=== PATIENT | female | born 1980 | race Two or more races ===

== ENCOUNTER 2018-02-11 17:22 | Inpatient (IN) | payer MEDICARE, OTHER ==
[~2018-02-11] VITALS: Ht 170.2 cm; Wt 74.8 kg
[2018-02-11 17:22] VITALS: BP 111/70
[2018-02-11] MEDS ORDERED: ZOLPIDEM TARTRA10 MG ORAL (17:30)
[2018-02-11] MEDS ORDERED: QUETIAPINE FUM400 MG ORAL (17:30)
[2018-02-11] MEDS ORDERED: ZYPREXA10 MG ORAL (17:30)
[2018-02-11] MEDS ORDERED: DIPHENHYDRAMINE25 M1 ORAL (17:30)
[2018-02-11] MEDS ORDERED: BREO ELLIPTA 21 EACH IH (17:30)
[2018-02-11] MEDS ORDERED: VENTOLIN HFA18 GM INH (17:30)
[2018-02-11] MEDS ORDERED: DEPAKOTE ER500 MG ORAL (17:30)
[2018-02-11] MEDS ORDERED: SEROQUEL200 MG ORAL (17:30)
[2018-02-11 18:00] LABS: BASOPHILS % (AUTO) 0.3 % (0.0-2.0); EOSINOPHILS % (AUTO) 0.5 % (0.0-3.0); HEMATOCRIT 34.4 % (37.0-47.0); HEMOGLOBIN 11.8 G/DL (12.0-16.0); MEAN CORPUSCULAR VOLUME 87 FL (80-99); MONOCYTES % (AUTO) 10.2 % (1.0-10.0); PLATELET COUNT 195 K/UL (150-450); RED BLOOD COUNT 3.97 M/UL (4.20-5.40); RED CELL DISTRIBUTION WIDTH 11.5 % (11.6-14.8); WHITE BLOOD COUNT 7.2 K/UL (4.8-10.8)
[2018-02-11 18:01] LABS: ANION GAP 14 mmol/L (5-15); BLOOD UREA NITROGEN 12 mg/dL (7-18); CARBON DIOXIDE 25 MMOL/L (21-32); CHLORIDE 101 MMOL/L (98-107); POTASSIUM 3.2 MMOL/L (3.5-5.1); SODIUM 140 MMOL/L (136-145)
[2018-02-11 18:06] LABS: ALANINE AMINOTRANSFERASE 24 U/L (12-78); ALBUMIN 3.4 G/DL (3.4-5.0); ALBUMIN/GLOBULIN RATIO 0.7 (1.0-2.7); ALKALINE PHOSPHATASE 68 U/L (46-116); ASPARTATE AMINO TRANSFERASE 25 U/L (15-37); BILIRUBIN,TOTAL 0.4 MG/DL (0.2-1.0)
[2018-02-11 19:21] VITALS: BP 115/65
[2018-02-11] MEDS ORDERED: Depakote ER 500mg tab ORAL SCH (22:15)
[2018-02-11 22:38] VITALS: BP 115/93
--- NOTE | 2018-02-11 22:48 | Diagnostic Imaging Report ---
EXAM: XR Chest, 1 View CLINICAL HISTORY: SOB TECHNIQUE: Frontal view of the chest. COMPARISON: No relevant prior studies available. FINDINGS: Lungs: Unremarkable. No consolidation. Pleural space: Unremarkable. No pneumothorax. Heart: Unremarkable. No cardiomegaly. Mediastinum: Unremarkable. Bones/joints: Unremarkable. IMPRESSION: No acute findings.
--- NOTE | 2018-02-11 23:18 | Emergency Room Report ---
History of Present Illness General Chief Complaint: Seizure Source: Medical Record Present Illness HPI Patient is a 37-year-old female sent in from [id number] for witnessed seizure. Patient reportedly had prior history of seizure disorder. She was taking Depakote. The patient was noted to be confused after seizure. The patient was brought in by EMS. The is unknown if patient is compliant with her medications. History is limited by patient's altered mental status. Allergies: Coded Allergies: TOMATO (Verified Allergy, Unknown, 02/11/18) Patient History Past Medical History: see triage record Now: No Reviewed Nursing Documentation: PMH: Agreed; PSxH: Agreed Nursing Documentation-PMH Hx COPD: Yes History Of Psychiatric Problem: Yes - SCHIZOPRENIA Hx Seizures: Yes Review of Systems All Other Systems: limited - by mental status Physical Exam Vital Signs Date Time Temp Pulse Resp B/P (MAP) Pulse Ox O2 Delivery O2 Flow Rate FiO2 02/11/18 17:08 97.8 110 16 125/80 98 Room Air 97.9 Sp02 EP Interpretation: reviewed, normal General Appearance: normal inspection, well appearing, no apparent distress, alert, Chronically Ill Head: atraumatic ENT: normal ENT inspection, hearing grossly normal, normal voice Neck: normal inspection, full range of motion, supple, no bony tend Respiratory: normal inspection, lungs clear, normal breath sounds, no respiratory distress, no retraction, no wheezing Cardiovascular #1: regular rate, rhythm, no edema Gastrointestinal: normal inspection, normal bowel sounds, non tender, soft, no guarding, no hernia Genitourinary: no CVA tenderness Musculoskeletal: normal inspection, back normal, normal range of motion Neurologic: responsive, sensory deficit Psychiatric: normal inspection, judgement/insight normal, mood/affect normal Skin: normal inspection, normal color, no rash Medical Decision Making Diagnostic Impression: Primary Impression: Seizure Additional Impressions: Seizure secondary to subtherapeutic anticonvulsant medication Dehydration ER Course Patient presented for seizure. The differential diagnosis included was not limited to substance abuse, cardiac arrhythmia, subtherapeutic anticonvulsant level, pseudoseizure among others.Because of complexity of patient's case laboratory testing and imaging studies were ordered. The patient was noted to have prolonged period of confusion. The patient. Be somewhat improved over time. Patient was noted to have prior history of seizure disorder. EKG interpreted by me showed sinus tachycardia with nonspecific ST changes. Rate of 104. Patient was discussed with Dr.De Mckeon for Dr Becker for inpatient managent Labs Test 02/11/18 17:30 02/11/18 19:00 White Blood Count 7.2 K/UL (4.8-10.8) Red Blood Count 3.97 M/UL (4.20-5.40) Hemoglobin 11.8 G/DL (12.0-16.0) Hematocrit 34.4 % (37.0-47.0) Mean Corpuscular Volume 87 FL (80-99) Mean Corpuscular Hemoglobin 29.7 PG (27.0-31.0) Mean Corpuscular Hemoglobin Concent 34.3 G/DL (32.0-36.0) Red Cell Distribution Width 11.5 % (11.6-14.8) Platelet Count 195 K/UL (150-450) Mean Platelet Volume 7.0 FL (6.5-10.1) Neutrophils (%) (Auto) 59.0 % (45.0-75.0) Lymphocytes (%) (Auto) 30.0 % (20.0-45.0) Monocytes (%) (Auto) 10.2 % (1.0-10.0) Eosinophils (%) (Auto) 0.5 % (0.0-3.0) Basophils (%) (Auto) 0.3 % (0.0-2.0) Sodium Level 140 MMOL/L (136-145) Potassium Level 3.2 MMOL/L (3.5-5.1) Chloride Level 101 MMOL/L (98-107) Carbon Dioxide Level 25 MMOL/L (21-32) Anion Gap 14 mmol/L (5-15) Blood Urea Nitrogen 12 mg/dL (7-18) Creatinine 1.0 MG/DL (0.55-1.30) Estimat Glomerular Filtration Rate > 60 mL/min (>60) Glucose Level 120 MG/DL (74-106) Calcium Level 9.0 MG/DL (8.5-10.1) Total Bilirubin 0.4 MG/DL (0.2-1.0) Aspartate Amino Transf (AST/SGOT) 25 U/L (15-37) Alanine Aminotransferase (ALT/SGPT) 24 U/L (12-78) Alkaline Phosphatase 68 U/L (46-116) Total Protein 8.0 G/DL (6.4-8.2) Albumin 3.4 G/DL (3.4-5.0) Globulin 4.6 g/dL Albumin/Globulin Ratio 0.7 (1.0-2.7) Valproic Acid (Depakene) Level 48 MCG/ML (50-100) Urine Opiates Screen Negative (NEGATIVE) Urine Barbiturates Screen Negative (NEGATIVE) Phencyclidine (PCP) Screen Negative (NEGATIVE) Urine Amphetamines Screen Positive (NEGATIVE) Urine Benzodiazepines Screen Negative (NEGATIVE) Urine Cocaine Screen Negative (NEGATIVE) Urine Marijuana (THC) Screen Negative (NEGATIVE) EKG Diagnostic Results Rate: tachycardiac Rhythm: NSR ST Segments: other - st depression Last Vital Signs Date Time Temp Pulse Resp B/P (MAP) Pulse Ox O2 Delivery O2 Flow Rate FiO2 02/11/18 22:38 97.9 110 23 115/93 97 Room Air 97.9 Status: improved Disposition: ADMITTED INPATIENT Condition: Serious Referrals: NON PHYSICIAN (PCP) Bartolo Cohen MD Feb 11, 2018 23:18
[2018-02-11] MEDS: QUEtiapine 200mg tab ORAL SCH (23:33)
[2018-02-11] MEDS: Enoxaparin 40mg Inj SUBQ SCH (23:34)
[2018-02-12] VITALS: BP 112/74
[2018-02-12 00:46] VITALS: BP 115/93
[2018-02-12 04:00] VITALS: BP 118/67
[2018-02-12] MEDS: QUEtiapine 200mg tab ORAL SCH ×2 (08:59→21:55)
[2018-02-12] MEDS: Depakote 125mg Sprinkles ORAL SCH ×2 (09:25→18:37)
[2018-02-12] MEDS: LORazepam 1mg tab ORAL PRN (10:06)
[2018-02-12] MEDS ORDERED: LORazepam 1mg tab ORAL PRN (11:30)
[2018-02-12] MEDS ORDERED: Haloperidol 5mg/ml Inj IM SCH ×3 (11:30→21:00)
[2018-02-12] MEDS ORDERED: LORazepam Inj 2mg/ml 1ml IM SCH ×3 (11:30→21:00)
[2018-02-12] MEDS ORDERED: DiphenhydrAMINE 50mg/ml Inj IM SCH ×3 (11:30→21:00)
--- NOTE | 2018-02-12 14:26 | Infectious Diseases Prog Note ---
Assessment/Plan Problems: (1) Fever Assessment & Plan: rule out sepsis , will order UA and blood culture , will start vancomycin and ceftriaxon empirically (2) Seizure secondary to subtherapeutic anticonvulsant medication Assessment & Plan: continue seizure meds, and antibiotics, monitor level, consult neurology (3) Dehydration Assessment & Plan: continue IVF for hydration (4) Drug abuse Assessment & Plan: recommend counseling Subjective Allergies: Coded Allergies: TOMATO (Verified Allergy, Unknown, 02/11/18) Objective Vital Signs Last 24 Hour Vital Signs Date Time Temp Pulse Resp B/P (MAP) Pulse Ox O2 Delivery O2 Flow Rate FiO2 02/12/18 09:00 Room Air 02/12/18 04:00 99.8 111 24 118/67 (84) 97 99.8 02/12/18 00:48 Room Air 02/12/18 00:46 97.9 110 23 115/93 (100) 97 97.9 02/12/18 00:00 98.2 119 24 112/74 (87) 100 98.2 02/11/18 23:05 97.9 110 23 115/93 97 Room Air 97.9 02/11/18 22:38 97.9 110 23 115/93 97 Room Air 97.9 02/11/18 19:21 97.9 99 23 115/65 97 Room Air 97.9 02/11/18 17:22 97.9 104 23 111/70 96 Room Air 97.9 02/11/18 17:22 110 16 Room Air 02/11/18 17:08 97.8 110 16 125/80 98 Room Air 97.9 Height (Feet): 5 Height (Inches): 7.00 Weight (Pounds): 165 Laboratory Tests Test 02/11/18 17:30 02/11/18 19:00 White Blood Count 7.2 K/UL (4.8-10.8) Red Blood Count 3.97 M/UL (4.20-5.40) L Hemoglobin 11.8 G/DL (12.0-16.0) L Hematocrit 34.4 % (37.0-47.0) L Mean Corpuscular Volume 87 FL (80-99) Mean Corpuscular Hemoglobin 29.7 PG (27.0-31.0) Mean Corpuscular Hemoglobin Concent 34.3 G/DL (32.0-36.0) Red Cell Distribution Width 11.5 % (11.6-14.8) L Platelet Count 195 K/UL (150-450) Mean Platelet Volume 7.0 FL (6.5-10.1) Neutrophils (%) (Auto) 59.0 % (45.0-75.0) Lymphocytes (%) (Auto) 30.0 % (20.0-45.0) Monocytes (%) (Auto) 10.2 % (1.0-10.0) H Eosinophils (%) (Auto) 0.5 % (0.0-3.0) Basophils (%) (Auto) 0.3 % (0.0-2.0) Sodium Level 140 MMOL/L (136-145) Potassium Level 3.2 MMOL/L (3.5-5.1) L Chloride Level 101 MMOL/L (98-107) Carbon Dioxide Level 25 MMOL/L (21-32) Anion Gap 14 mmol/L (5-15) Blood Urea Nitrogen 12 mg/dL (7-18) Creatinine 1.0 MG/DL (0.55-1.30) Estimat Glomerular Filtration Rate > 60 mL/min (>60) Glucose Level 120 MG/DL (74-106) H Calcium Level 9.0 MG/DL (8.5-10.1) Total Bilirubin 0.4 MG/DL (0.2-1.0) Aspartate Amino Transf (AST/SGOT) 25 U/L (15-37) Alanine Aminotransferase (ALT/SGPT) 24 U/L (12-78) Alkaline Phosphatase 68 U/L (46-116) Total Protein 8.0 G/DL (6.4-8.2) Albumin 3.4 G/DL (3.4-5.0) Globulin 4.6 g/dL Albumin/Globulin Ratio 0.7 (1.0-2.7) L Valproic Acid (Depakene) Level 48 MCG/ML (50-100) L Urine Opiates Screen Negative (NEGATIVE) Urine Barbiturates Screen Negative (NEGATIVE) Phencyclidine (PCP) Screen Negative (NEGATIVE) Urine Amphetamines Screen Positive (NEGATIVE) H Urine Benzodiazepines Screen Negative (NEGATIVE) Urine Cocaine Screen Negative (NEGATIVE) Urine Marijuana (THC) Screen Negative (NEGATIVE) Current Medications Medications (Trade) Dose Ordered Sig/Vida Route PRN Reason Start Time Stop Time Status Last Admin Dose Admin Acetaminophen (Tylenol) 650 mg Q4H PRN ORAL Mild Pain (Pain Scale 1-3) 02/11/18 21:45 03/13/18 21:44 Dextrose (Dextrose 50%) 25 ml STAT PRN IV Hypoglycemia 02/11/18 21:45 03/13/18 21:44 Dextrose (Dextrose 50%) 50 ml STAT PRN IV Hypoglycemia 02/11/18 21:45 03/13/18 21:44 Diphenhydramine HCl (Benadryl) 25 mg Q6H PRN ORAL Itching/Pruritis 02/11/18 21:45 03/13/18 21:44 Divalproex Sodium (Depakote Sprinkles) 500 mg BID ORAL 02/12/18 09:15 03/14/18 09:14 02/12/18 09:25 Enoxaparin Sodium (Lovenox) 40 mg BEDTIME SUBQ 02/11/18 22:45 03/13/18 22:44 02/11/18 23:34 Lorazepam (Ativan) 1 mg Q6H PRN ORAL For Anxiety 02/12/18 09:30 02/19/18 09:29 02/12/18 10:06 Lorazepam (Ativan) 2 mg Q6H PRN ORAL Agitation 02/12/18 11:30 02/19/18 11:29 Olanzapine (ZyPREXA) 10 mg DAILY ORAL 02/12/18 09:00 03/14/18 08:59 02/12/18 08:59 Ondansetron HCl (Zofran) 4 mg Q6H PRN IVP Nausea & Vomiting 02/11/18 21:45 03/13/18 21:44 Quetiapine Fumarate (SEROquel) 200 mg Q12HR ORAL 02/11/18 22:15 03/13/18 22:14 02/12/18 08:59 Sodium Chloride 1,000 ml @ 100 mls/hr Q10H IVLG 02/11/18 22:33 03/13/18 22:32 02/11/18 23:35 Mary Suazo M.D. Feb 12, 2018 14:26
[2018-02-12] MEDS ORDERED: cefTRIAXone 2 GM in D5W 110 ML IVPB SCH (15:30)
[2018-02-12] MEDS ORDERED: Vancomycin 1.5 GM/D5W 250ML IVPB ONE (16:00)
--- NOTE | 2018-02-12 17:30 | History and Physical Report ---
DATE OF ADMISSION: 02/11/2018 DATE OF ADMISSION: February 11, 2018. REASON FOR ADMISSION: 1. Seizure. 2. Schizophrenia. HISTORY OF PRESENT ILLNESS: The patient is a 37-year-old female sent from [facility] after having a witnessed seizure. She does have a previous seizure disorder and was taking Depakote. The patient also has known schizophrenia. She was postictal but improved overnight and now is quite combative in nature. Her urine drug screen was positive for amphetamines. No chest pain of shortness of breath. No nausea, vomiting, or diarrhea. PAST MEDICAL HISTORY: 1. Schizophrenia. 2. Seizure disorder. 3. Anxiety. FAMILY HISTORY: Could not obtain. PAST SURGICAL HISTORY: Could not obtain. SOCIAL HISTORY: The patient was positive for amphetamines. REVIEW OF SYSTEMS: Cannot obtain as the patient is awake, combative, and disorganized. LABORATORY DATA: Dated February 11, 2018, positive for amphetamines. Potassium 3.2, sodium 140, creatinine 1. Hemoglobin 11.8, white cell count 7.2, and platelet count 195,000. PHYSICAL EXAMINATION: VITAL SIGNS: Blood pressure 118/67, pulse 111, temperature 99.8. GENERAL: The patient is awake, combative, and disorganized. HEENT: Extraocular muscles intact. No lymphadenopathy noted. CHEST: CTAB CARDIOVASCULAR: S1, S2. Tachycardic. PULMONARY: Clear to auscultation bilaterally. No rales, rhonchi, or wheezes. ABDOMEN: Nondistended and nontender. EXTREMITIES: No edema. ASSESSMENT AND PLAN: 1. Status post seizure, witnessed. Postictal in nature. Much more awake and coherent today. On Depakote. We will try to attempt to consult Neurology if available. The patient was amphetamine positive. 2. Schizophrenia. The patient is combative and disorganized. Continue Zyprexa and Ativan. Psychiatry has been consulted for assistance. 3. Hypokalemia. It has been replaced. Morning laboratories pending. 4. DVT prophylaxis, with Lovenox. Melchor Garcia MD DR: Allen JOB#: [id number] CC: FELIPE
--- NOTE | 2018-02-12 19:15 | Consultation ---
DATE OF CONSULTATION: 02/12/2018 INFECTIOUS DISEASE CONSULTATION CONSULTING PHYSICIAN: Mary Suazo M.D. REQUESTING PHYSICIAN: Ted Peters M.D. REASON FOR CONSULTATION: Fever with new episode seizure, rule out infectious etiology. HISTORY OF PRESENT ILLNESS: The patient is a 37-year-old female with past medical history of schizophrenia and seizure who was living at a board and care, was brought into [facility] emergency room for witnessed seizure. The patient was taking Depakote as per the staff, but she was noticed to be confused after she had a seizure, so she was sent to the emergency room at [facility] via paramedics for evaluation. It is unknown whether she was really taking her medications or not, but the patient seems to be confused, a poor historian, cannot provide any history at that time. The patient was found to be febrile and tachycardic in the emergency room, with dehydration. The patient's initial chest x-ray did not show any acute infiltration, but since she had a seizure with concern of infectious etiology, infectious disease consultation was requested for further evaluation and management. As of note, the patient is altered, psychotic, could not provide any history. History was mainly obtained from the medical record. REVIEW OF SYSTEMS: Unable to obtain. The patient is altered and confused. PAST MEDICAL HISTORY: Significant for COPD, schizophrenia, and seizure disorder. PAST SURGICAL HISTORY: Not on record. FAMILY HISTORY: Unable to obtain. SOCIAL HISTORY: She lives in [facility] illness. The patient has been using drugs recently and tested positive for amphetamine. ALLERGIES: He has no known drug allergy. MEDICATIONS: She is on lorazepam, Depakote, Zyprexa, Lovenox, Seroquel, Tylenol, and Zofran. LABORATORY DATA: Labs showed white count of 7.2, hemoglobin of 11.8, platelet count of 195. BUN of 12, creatinine of 1. AST of 25, ALT of 24. Toxicology screening was positive for amphetamines and her valproic acid level was low. IMAGING: Chest x-ray showed no acute findings. PHYSICAL EXAMINATION: VITAL SIGNS: Temperature 99.8, pulse 111, respirations 24, blood pressure 118/67, saturation 97% on room air. GENERAL: Young female, lying in bed, psychotic, confused, altered, not responsive to verbal command, mildly agitated. HEENT: Normocephalic and atraumatic. Pupils are reactive to light equally. Moist oral mucosa. No exudate. NECK: Supple. No lymphadenopathy. CARDIOVASCULAR: She is tachycardic. S1, S2 normal. No murmur. LUNGS: She had diminished breathing sounds at the bases with crackles. No wheezing or rhonchi. ABDOMEN: Soft, obese, nontender, and nondistended. Normal bowel sounds. No hepatosplenomegaly. No ascites. EXTREMITIES: No edema or cyanosis. SKIN: No rash. No hives. ASSESSMENT AND RECOMMENDATION: 1. Fever, rule out sepsis. We will order urinalysis and blood culture. We will start the patient on vancomycin and ceftriaxone empiric coverage. 2. Seizure due to subtherapeutic anticonvulsant medication. Continue seizure medicine with loading and antibiotic empiric coverage for possible infection, monitor level. Consult Neurology if possible. 3. Dehydration. Continue IV fluid for hydration. 4. Drug abuse. Recommend counseling and rehabilitation. Thank you for the consult. ID will continue to follow. Mary Suazo M.D. DR: NORA JOB#: [id number] CC:
[2018-02-12] MEDS: Enoxaparin 40mg Inj SUBQ SCH (21:56)
--- NOTE | 2018-02-12 23:14 | Consultation ---
History of Present Illness General Chief Complaint: Seizure Present Illness Allergies: Coded Allergies: TOMATO (Verified Allergy, Unknown, 02/11/18) Medication History Scheduled Albuterol Sulfate (Ventolin Hfa), 1 PUFF INH EVERY 6 HOURS, (Reported) Divalproex Sodium* (Depakote Er*), 500 MG ORAL EVERY 12 HOURS, (Reported) Olanzapine* (Zyprexa*), 10 MG ORAL DAILY, (Reported) Quetiapine Fumarate* (Seroquel*), 200 MG ORAL DAILY, (Reported) Quetiapine Fumarate* (Quetiapine Fumarate*), 400 MG ORAL DAILY, (Reported) Scheduled PRN Diphenhydramine Hcl* (Diphenhydramine Hcl*), 50 MG ORAL Q6H PRN for Itching, ( Reported) Zolpidem Tartrate* (Zolpidem Tartrate*), 10 MG ORAL BEDTIME PRN for Insomnia, ( Reported) Miscellaneous Medications Fluticasone/Vilanterol (Breo Ellipta 200-25 Mcg INH), 1 EACH IH, (Reported) Patient History Healthcare decision maker Marci Merritt Resuscitation status Full Code Advanced Directive on File Physical Exam Last 24 Hour Vital Signs Date Time Temp Pulse Resp B/P (MAP) Pulse Ox O2 Delivery O2 Flow Rate FiO2 02/12/18 21:00 Room Air 02/12/18 09:00 Room Air 02/12/18 04:00 99.8 111 24 118/67 (84) 97 99.8 02/12/18 00:48 Room Air 02/12/18 00:46 97.9 110 23 115/93 (100) 97 97.9 02/12/18 00:00 98.2 119 24 112/74 (87) 100 98.2 Intake and Output 02/11/18 02/12/18 19:00 07:00 Intake Total 0 ml 1820 ml Balance 0 ml 1820 ml Intake Oral 0 ml 120 ml IV Total 1700 ml Height (Feet): 5 Height (Inches): 7.00 Weight (Pounds): 165 Medications Current Medications Medications (Trade) Dose Ordered Sig/Vida Route PRN Reason Start Time Stop Time Status Last Admin Dose Admin Acetaminophen (Tylenol) 650 mg Q4H PRN ORAL Mild Pain (Pain Scale 1-3) 02/11/18 21:45 03/13/18 21:44 Cephalexin (Keflex) 500 mg Q6HR ORAL 02/13/18 00:00 02/20/18 00:00 Dextrose (Dextrose 50%) 25 ml STAT PRN IV Hypoglycemia 02/11/18 21:45 03/13/18 21:44 Dextrose (Dextrose 50%) 50 ml STAT PRN IV Hypoglycemia 02/11/18 21:45 03/13/18 21:44 Diphenhydramine HCl (Benadryl) 25 mg Q6H PRN ORAL Itching/Pruritis 02/11/18 21:45 03/13/18 21:44 Divalproex Sodium (Depakote Sprinkles) 500 mg BID ORAL 02/12/18 09:15 03/14/18 09:14 02/12/18 18:37 Doxycycline Monohydrate (Vibramycin) 100 mg EVERY 12 HOURS ORAL 02/12/18 22:00 02/19/18 21:59 02/12/18 22:06 Enoxaparin Sodium (Lovenox) 40 mg BEDTIME SUBQ 02/11/18 22:45 03/13/18 22:44 02/12/18 21:56 Lorazepam (Ativan) 1 mg Q6H PRN ORAL For Anxiety 02/12/18 09:30 02/19/18 09:29 02/12/18 10:06 Lorazepam (Ativan) 2 mg Q6H PRN ORAL Agitation 02/12/18 11:30 02/19/18 11:29 Olanzapine (ZyPREXA) 10 mg DAILY ORAL 02/12/18 09:00 03/14/18 08:59 02/12/18 08:59 Ondansetron HCl (Zofran) 4 mg Q6H PRN IVP Nausea & Vomiting 02/11/18 21:45 03/13/18 21:44 Quetiapine Fumarate (SEROquel) 200 mg Q12HR ORAL 02/11/18 22:15 03/13/18 22:14 02/12/18 21:55 Sodium Chloride 1,000 ml @ 100 mls/hr Q10H IVLG 02/11/18 22:33 03/13/18 22:32 02/11/18 23:35 Vancomycin HCl (Vanco rx to dose) 1 ea DAILY PRN MISC Per rx protocol 02/12/18 14:30 03/14/18 14:29 Eber Dwyer MD Feb 12, 2018 23:14
[2018-02-12] MEDS: Cephalexin 500mg cap ORAL SCH (23:49)
[2018-02-13] MEDS ORDERED: Vancomycin 1250mg/D5W 250ml IVPB SCH (04:00)
[2018-02-13] MEDS: Cephalexin 500mg cap ORAL SCH ×3 (06:14→17:25)
[2018-02-13 06:44] LABS: APPEARANCE,URINE SLIGHTLY CLOUDY; BILIRUBIN, URINE 1+ (NEGATIVE); GLUCOSE, URINE (UA) NEGATIVE (NEGATIVE); KETONES,URINE 1+ (NEGATIVE); LEUKOCYTE ESTERASE ,URINE 2+ (NEGATIVE); NITRITE,URINE NEGATIVE (NEGATIVE); PH,URINE 6 (4.5-8.0); PROTEIN,URINE 2+ (NEGATIVE); UROBILINOGEN,URINE 4 MG/DL (0.0-1.0)
[2018-02-13 07:02] LABS: COLOR,URINE YELLOW
[2018-02-13 08:24] VITALS: BP 90/50
[2018-02-13] MEDS: Depakote 125mg Sprinkles ORAL SCH ×2 (09:21→17:26)
[2018-02-13] MEDS: QUEtiapine 200mg tab ORAL SCH ×2 (09:21→21:14)
--- NOTE | 2018-02-13 09:25 | Nephrology Progress Note ---
Assessment/Plan Assessment/Plan 1. Seizure- + amphetamine - resolved. Post ictal phase resolved - back on Depakote - plan on DC tomorrow back to care facility 2. Schizophrenia- per PSY mgmt 3. DVT prophylaxisis with lovenox Subjective Date patient seen: Feb 13, 2018 Time patient seen: 09:22 ROS Limited/Unobtainable: No Allergies: Coded Allergies: TOMATO (Verified Allergy, Unknown, 02/11/18) All Systems: reviewed and negative except above Subjective Patient resting. Much more calm Objective Last 24 Hour Vital Signs Date Time Temp Pulse Resp B/P (MAP) Pulse Ox O2 Delivery O2 Flow Rate FiO2 02/13/18 08:24 98.1 87 21 90/50 (63) 97 98.1 02/12/18 21:00 Room Air Intake and Output 02/12/18 02/13/18 19:00 07:00 Intake Total 300 ml Balance 300 ml IV Total 300 ml # Voids 1 1 Laboratory Tests 02/13/18 06:15: Urine Color Yellow, Urine Appearance Slightly cloudy, Urine pH 6, Urine Specific [place] 1.025, Urine Protein 2+H, Urine Glucose (UA) Negative, Urine Ketones 1+H, Urine Occult Blood Negative, Urine Nitrite Negative, Urine Bilirubin 1+H, Urine Ictotest Negative, Urine Urobilinogen 4H, Urine Leukocyte Esterase 2+H, Urine RBC 2-4H, Urine WBC 2-4, Urine Squamous Epithelial Cells ModerateH, Urine Bacteria Few, Urine Yeast FewH Height (Feet): 5 Height (Inches): 7.00 Weight (Pounds): 165 General Appearance: no apparent distress, alert EENT: normal ENT inspection Neck: normal alignment, supple Cardiovascular: normal rate, regular rhythm Respiratory/Chest: lungs clear, normal breath sounds Abdomen: non tender, soft Edema: no edema noted Arm (L), no edema noted Arm (R), no edema noted Leg (L), no edema noted Leg (R), no edema noted Pedal (L), no edema noted Pedal (R), no edema noted Generalized Melchor Garcia M.D. Feb 13, 2018 09:24
[2018-02-13 11:57] VITALS: BP 130/60
[2018-02-13 13:52] LABS: BASOPHILS % (AUTO) 0.8 % (0.0-2.0); EOSINOPHILS % (AUTO) 2.6 % (0.0-3.0); HEMATOCRIT 35.7 % (37.0-47.0); HEMOGLOBIN 11.9 G/DL (12.0-16.0); MEAN CORPUSCULAR VOLUME 89 FL (80-99); MONOCYTES % (AUTO) 9.1 % (1.0-10.0); NEUTROPHILS % (AUTO) 57.5 % (45.0-75.0); PLATELET COUNT 185 K/UL (150-450); RED CELL DISTRIBUTION WIDTH 11.9 % (11.6-14.8); WHITE BLOOD COUNT 8.1 K/UL (4.8-10.8)
--- NOTE | 2018-02-13 14:07 | Infectious Diseases Prog Note ---
Assessment/Plan Problems: (1) UTI (urinary tract infection) Assessment & Plan: will continue keflex empirically for 5 more days (2) Fever Assessment & Plan: suspect due to UTI, rule out sepsis , blood culture was not collected, D/W charge nurse , on oral antibiotics , pulled all her IV lines (3) Seizure secondary to subtherapeutic anticonvulsant medication Assessment & Plan: continue seizure meds, and antibiotics, monitor level, consult neurology (4) Dehydration Assessment & Plan: continue IVF for hydration (5) Drug abuse Assessment & Plan: recommend counseling Subjective ROS Limited/Unobtainable: Yes Allergies: Coded Allergies: TOMATO (Verified Allergy, Unknown, 02/11/18) Subjective she is more quiet and resting in bed , not agitated or psychotic . unresponsive to verbal commands Objective Vital Signs Last 24 Hour Vital Signs Date Time Temp Pulse Resp B/P (MAP) Pulse Ox O2 Delivery O2 Flow Rate FiO2 02/13/18 11:57 98.2 101 19 130/60 (83) 97 98.2 02/13/18 09:00 Room Air 02/13/18 08:24 98.1 87 21 90/50 (63) 97 98.1 02/12/18 21:00 Room Air Height (Feet): 5 Height (Inches): 7.00 Weight (Pounds): 165 General Appearance: WD/WN, no acute distress HEENT: normocephalic, atraumatic, anicteric, mucous membranes moist, PERRL Respiratory/Chest: chest wall non-tender, lungs clear, normal breath sounds, no respiratory distress, no accessory muscle use Cardiovascular: normal peripheral pulses, normal rate, regular rhythm, no gallop/murmur, no JVD Abdomen: normal bowel sounds, soft, non tender, no organomegaly, non distended , no mass, no scars Extremities: no cyanosis, no clubbing Skin: no rash, no lesions, no ulcers Neurologic/Psychiatric: alert, oriented x 3, responsive Lymphatic: no neck adenopathy, no groin adenopathy Musculoskeletal: normal muscle bulk Microbiology Date/Time Source Procedure Growth Status 02/11/18 22:21 Rectum VRE Culture - Final NO VANCOMYCIN RESISTANT ENTEROCOCCUS ... Resulted 02/11/18 22:21 Rectum Pending Resulted Laboratory Tests Test 02/13/18 06:15 02/13/18 13:26 Urine Color Yellow Urine Appearance Slightly cloudy Urine pH 6 (4.5-8.0) Urine Specific [place] 1.025 (1.005-1.035) Urine Protein 2+ (NEGATIVE) H Urine Glucose (UA) Negative (NEGATIVE) Urine Ketones 1+ (NEGATIVE) H Urine Occult Blood Negative (NEGATIVE) Urine Nitrite Negative (NEGATIVE) Urine Bilirubin 1+ (NEGATIVE) H Urine Ictotest Negative Urine Urobilinogen 4 MG/DL (0.0-1.0) H Urine Leukocyte Esterase 2+ (NEGATIVE) H Urine RBC 2-4 /HPF (0 - 2) H Urine WBC 2-4 /HPF (0 - 2) Urine Squamous Epithelial Cells Moderate /LPF (NONE/OCC) H Urine Bacteria Few /HPF (NONE) Urine Yeast Few /HPF (NONE) H White Blood Count 8.1 K/UL (4.8-10.8) Red Blood Count 4.00 M/UL (4.20-5.40) L Hemoglobin 11.9 G/DL (12.0-16.0) L Hematocrit 35.7 % (37.0-47.0) L Mean Corpuscular Volume 89 FL (80-99) Mean Corpuscular Hemoglobin 29.7 PG (27.0-31.0) Mean Corpuscular Hemoglobin Concent 33.2 G/DL (32.0-36.0) Red Cell Distribution Width 11.9 % (11.6-14.8) Platelet Count 185 K/UL (150-450) Mean Platelet Volume 7.4 FL (6.5-10.1) Neutrophils (%) (Auto) 57.5 % (45.0-75.0) Lymphocytes (%) (Auto) 30.0 % (20.0-45.0) Monocytes (%) (Auto) 9.1 % (1.0-10.0) Eosinophils (%) (Auto) 2.6 % (0.0-3.0) Basophils (%) (Auto) 0.8 % (0.0-2.0) Sodium Level Pending Potassium Level Pending Chloride Level Pending Carbon Dioxide Level Pending Blood Urea Nitrogen Pending Creatinine Pending Estimat Glomerular Filtration Rate Pending Glucose Level Pending Calcium Level Pending Current Medications Medications (Trade) Dose Ordered Sig/Vida Route PRN Reason Start Time Stop Time Status Last Admin Dose Admin Acetaminophen (Tylenol) 650 mg Q4H PRN ORAL Mild Pain (Pain Scale 1-3) 02/11/18 21:45 03/13/18 21:44 Cephalexin (Keflex) 500 mg Q6HR ORAL 02/13/18 00:00 02/20/18 00:00 02/13/18 11:42 Dextrose (Dextrose 50%) 25 ml STAT PRN IV Hypoglycemia 02/11/18 21:45 03/13/18 21:44 Dextrose (Dextrose 50%) 50 ml STAT PRN IV Hypoglycemia 02/11/18 21:45 03/13/18 21:44 Diphenhydramine HCl (Benadryl) 25 mg Q6H PRN ORAL Itching/Pruritis 02/11/18 21:45 03/13/18 21:44 Divalproex Sodium (Depakote Sprinkles) 500 mg BID ORAL 02/12/18 09:15 03/14/18 09:14 02/13/18 09:21 Doxycycline Monohydrate (Vibramycin) 100 mg EVERY 12 HOURS ORAL 02/12/18 22:00 02/19/18 21:59 02/13/18 09:17 Enoxaparin Sodium (Lovenox) 40 mg BEDTIME SUBQ 02/11/18 22:45 03/13/18 22:44 02/12/18 21:56 Lorazepam (Ativan) 1 mg Q6H PRN ORAL For Anxiety 02/12/18 09:30 02/19/18 09:29 02/12/18 10:06 Lorazepam (Ativan) 2 mg Q6H PRN ORAL Agitation 02/12/18 11:30 02/19/18 11:29 Olanzapine (ZyPREXA) 10 mg DAILY ORAL 02/12/18 09:00 03/14/18 08:59 02/13/18 09:21 Ondansetron HCl (Zofran) 4 mg Q6H PRN IVP Nausea & Vomiting 02/11/18 21:45 03/13/18 21:44 Quetiapine Fumarate (SEROquel) 200 mg Q12HR ORAL 02/11/18 22:15 03/13/18 22:14 02/13/18 09:21 Vancomycin HCl (Vanco rx to dose) 1 ea DAILY PRN MISC Per rx protocol 02/12/18 14:30 03/14/18 14:29 Mary Suazo M.D. Feb 13, 2018 14:07
[2018-02-13 14:14] LABS: ANION GAP 5 mmol/L (5-15); BLOOD UREA NITROGEN 10 mg/dL (7-18); CARBON DIOXIDE 27 MMOL/L (21-32); CHLORIDE 106 MMOL/L (98-107); CREATININE 0.8 MG/DL (0.55-1.30); POTASSIUM 3.9 MMOL/L (3.5-5.1); SODIUM 138 MMOL/L (136-145)
[2018-02-13 16:00] VITALS: BP 108/71
--- NOTE | 2018-02-13 18:43 | Cardiology Report ---
APPROVED REPORT EKG Measurement Heart [id number] CT [id number] Sinus tachycardia Nonspecific ST and T wave abnormality Abnormal ECG
[2018-02-13 20:00] VITALS: BP 119/73
[2018-02-13] MEDS: Enoxaparin 40mg Inj SUBQ SCH (21:15)
[2018-02-14] VITALS: BP 113/70
[2018-02-14] MEDS: Cephalexin 500mg cap ORAL SCH ×4 (00:05→17:35)
[2018-02-14 04:00] VITALS: BP 114/78
[2018-02-14 08:00] VITALS: BP 121/77
[2018-02-14 09:01] LABS: BASOPHILS % (AUTO) 1.2 % (0.0-2.0); EOSINOPHILS % (AUTO) 5.1 % (0.0-3.0); HEMATOCRIT 37.1 % (37.0-47.0); HEMOGLOBIN 12.1 G/DL (12.0-16.0); LYMPHOCYTES % (AUTO) 35.8 % (20.0-45.0); MEAN CORPUSCULAR VOLUME 89 FL (80-99); MONOCYTES % (AUTO) 9.2 % (1.0-10.0); NEUTROPHILS % (AUTO) 48.7 % (45.0-75.0); PLATELET COUNT 175 K/UL (150-450); RED BLOOD COUNT 4.17 M/UL (4.20-5.40); RED CELL DISTRIBUTION WIDTH 11.6 % (11.6-14.8); WHITE BLOOD COUNT 6.5 K/UL (4.8-10.8)
[2018-02-14] MEDS: QUEtiapine 200mg tab ORAL SCH (09:06)
[2018-02-14] MEDS: Depakote 125mg Sprinkles ORAL SCH ×2 (09:06→17:35)
[2018-02-14 09:44] LABS: ANION GAP 5 mmol/L (5-15); BLOOD UREA NITROGEN 9 mg/dL (7-18); CALCIUM 9.2 MG/DL (8.5-10.1); CARBON DIOXIDE 28 MMOL/L (21-32); CHLORIDE 106 MMOL/L (98-107); CREATININE 0.8 MG/DL (0.55-1.30); POTASSIUM 3.6 MMOL/L (3.5-5.1); SODIUM 139 MMOL/L (136-145)
--- NOTE | 2018-02-14 09:46 | Nephrology Progress Note ---
Assessment/Plan Assessment/Plan 1. Seizure- + amphetamine. D/W patient not to take any further amphetamines - resolved. Post ictal phase resolved - back on Depakote. Continue at DC - DC today 2. Schizophrenia- per PSY mgmt 3. DVT prophylaxisis with lovenox 4. UTI- DC on Keflex for 3 more days Subjective Date patient seen: Feb 14, 2018 Time patient seen: 09:44 ROS Limited/Unobtainable: No Allergies: Coded Allergies: TOMATO (Verified Allergy, Unknown, 02/11/18) All Systems: reviewed and negative except above Subjective Patient resting. Much more calm and back to baseline Objective Last 24 Hour Vital Signs Date Time Temp Pulse Resp B/P (MAP) Pulse Ox O2 Delivery O2 Flow Rate FiO2 02/14/18 09:00 Room Air Room Air 02/14/18 08:00 97.7 106 20 121/77 (92) 97 97.7 02/14/18 04:00 98.1 76 20 114/78 (90) 97 98.1 02/14/18 00:00 98.2 87 19 113/70 (84) 96 98.2 02/13/18 21:00 Room Air Room Air 02/13/18 20:00 99.2 79 20 119/73 (88) 93 99.2 02/13/18 16:00 97.0 94 23 108/71 (83) 98 97.0 02/13/18 11:57 98.2 101 19 130/60 (83) 97 98.2 Intake and Output 02/13/18 02/14/18 19:00 07:00 # Voids 1 Laboratory Tests 02/13/18 13:00: Urine HCG, Qualitative Negative 02/13/18 13:26: White Blood Count 8.1, Red Blood Count 4.00L, Hemoglobin 11.9L, Hematocrit 35.7L , Mean Corpuscular Volume 89, Mean Corpuscular Hemoglobin 29.7, Mean Corpuscular Hemoglobin Concent 33.2, Red Cell Distribution Width 11.9, Platelet Count 185, Mean Platelet Volume 7.4, Neutrophils (%) (Auto) 57.5, Lymphocytes (% ) (Auto) 30.0, Monocytes (%) (Auto) 9.1, Eosinophils (%) (Auto) 2.6, Basophils ( %) (Auto) 0.8, Sodium Level 138, Potassium Level 3.9, Chloride Level 106, Carbon Dioxide Level 27, Anion Gap 5, Blood Urea Nitrogen 10, Creatinine 0.8, Estimat Glomerular Filtration Rate > 60, Glucose Level 100, Calcium Level 9.0 02/14/18 07:50: White Blood Count 6.5, Red Blood Count 4.17L, Hemoglobin 12.1, Hematocrit 37.1, Mean Corpuscular Volume 89, Mean Corpuscular Hemoglobin 29.0, Mean Corpuscular Hemoglobin Concent 32.6, Red Cell Distribution Width 11.6, Platelet Count 175, Mean Platelet Volume 8.3, Neutrophils (%) (Auto) 48.7, Lymphocytes (%) (Auto) 35.8, Monocytes (%) (Auto) 9.2, Eosinophils (%) (Auto) 5.1H, Basophils (%) (Auto ) 1.2, Sodium Level [Pending], Potassium Level [Pending], Chloride Level [ Pending], Carbon Dioxide Level [Pending], Blood Urea Nitrogen [Pending], Creatinine [Pending], Estimat Glomerular Filtration Rate [Pending], Glucose Level [Pending], Calcium Level [Pending] Height (Feet): 5 Height (Inches): 7.00 Weight (Pounds): 165 General Appearance: no apparent distress, alert EENT: normal ENT inspection Neck: normal alignment, supple Cardiovascular: normal rate, regular rhythm Respiratory/Chest: lungs clear, normal breath sounds Abdomen: normal bowel sounds, non tender, soft Edema: no edema noted Arm (L), no edema noted Arm (R), no edema noted Leg (L), no edema noted Leg (R), no edema noted Pedal (L), no edema noted Pedal (R), no edema noted Generalized Melchor Garcia M.D. Feb 14, 2018 09:46
--- NOTE | 2018-02-14 09:50 | Discharge Instructions ---
Discharge Instructions Discharge Instructions Services at Discharge: [facility] Diet: regular Resume Normal Activity?: Yes Activity: light activity Pneumonia Vaccine: vaccine not indicated Influenza Vaccine (May to Oct): vaccine not indicated Follow Up Orders 1. F/U PCP 1 week 2. F/U 1 week PSY 3. F/U 1 week Neuro 4. Complete 3 days of Abx for UTI For Congestive Heart Failure Reminder Report to your physician any weight gain of 5 pounds or more in one week. Melchor Garcia M.D. Feb 14, 2018 09:50
[2018-02-14] MEDS ORDERED: CEPHALEXIN500 MG ORAL (10:32)
[2018-02-14 12:00] VITALS: BP 116/76
--- NOTE | 2018-02-14 15:56 | Infectious Diseases Prog Note ---
Assessment/Plan Problems: (1) UTI (urinary tract infection) Assessment & Plan: continue keflex empirically for 4 more days (2) Fever Assessment & Plan: resolved , suspect due to UTI, blood culture was ordered but not collected yet , on oral antibiotics. (3) Seizure secondary to subtherapeutic anticonvulsant medication Assessment & Plan: continue seizure meds, and antibiotics, monitor level, consult neurology (4) Dehydration Assessment & Plan: improved , encourage hydration (5) Drug abuse Assessment & Plan: recommend counseling Subjective ROS Limited/Unobtainable: Yes Allergies: Coded Allergies: TOMATO (Verified Allergy, Unknown, 02/11/18) Subjective she is quiet and comfortable resting in bed , not agitated or psychotic . unresponsive to verbal commands, not agitated . Objective Vital Signs Last 24 Hour Vital Signs Date Time Temp Pulse Resp B/P (MAP) Pulse Ox O2 Delivery O2 Flow Rate FiO2 02/14/18 12:00 97.7 88 20 116/76 (89) 95 97.7 02/14/18 09:00 Room Air Room Air 02/14/18 08:00 97.7 106 20 121/77 (92) 97 97.7 02/14/18 04:00 98.1 76 20 114/78 (90) 97 98.1 02/14/18 00:00 98.2 87 19 113/70 (84) 96 98.2 02/13/18 21:00 Room Air Room Air 02/13/18 20:00 99.2 79 20 119/73 (88) 93 99.2 02/13/18 16:00 97.0 94 23 108/71 (83) 98 97.0 Height (Feet): 5 Height (Inches): 7.00 Weight (Pounds): 165 General Appearance: WD/WN, no acute distress HEENT: normocephalic, atraumatic, anicteric, mucous membranes moist, PERRL Respiratory/Chest: chest wall non-tender, lungs clear, normal breath sounds, no respiratory distress, no accessory muscle use Cardiovascular: normal peripheral pulses, normal rate, regular rhythm, no gallop/murmur, no JVD Abdomen: normal bowel sounds, soft, non tender, no organomegaly, non distended , no mass, no scars Extremities: no cyanosis, no clubbing Skin: no rash, no lesions, no ulcers Neurologic/Psychiatric: alert, responsive Microbiology Date/Time Source Procedure Growth Status 02/11/18 22:21 Nasal Nares MRSA Culture - Final NO METHICILLIN RESISTANT STAPH AUREUS... Complete 02/13/18 06:15 Urine,Clean Catch Urine Culture - Preliminary NO GROWTH Resulted 02/11/18 22:21 Rectum VRE Culture - Final NO VANCOMYCIN RESISTANT ENTEROCOCCUS ... Complete 02/11/18 22:21 Rectum - Final NO CARBAPENEM-RESISTANT ENTEROBACTERI... Complete Laboratory Tests Test 02/14/18 07:50 White Blood Count 6.5 K/UL (4.8-10.8) Red Blood Count 4.17 M/UL (4.20-5.40) L Hemoglobin 12.1 G/DL (12.0-16.0) Hematocrit 37.1 % (37.0-47.0) Mean Corpuscular Volume 89 FL (80-99) Mean Corpuscular Hemoglobin 29.0 PG (27.0-31.0) Mean Corpuscular Hemoglobin Concent 32.6 G/DL (32.0-36.0) Red Cell Distribution Width 11.6 % (11.6-14.8) Platelet Count 175 K/UL (150-450) Mean Platelet Volume 8.3 FL (6.5-10.1) Neutrophils (%) (Auto) 48.7 % (45.0-75.0) Lymphocytes (%) (Auto) 35.8 % (20.0-45.0) Monocytes (%) (Auto) 9.2 % (1.0-10.0) Eosinophils (%) (Auto) 5.1 % (0.0-3.0) H Basophils (%) (Auto) 1.2 % (0.0-2.0) Sodium Level 139 MMOL/L (136-145) Potassium Level 3.6 MMOL/L (3.5-5.1) Chloride Level 106 MMOL/L (98-107) Carbon Dioxide Level 28 MMOL/L (21-32) Anion Gap 5 mmol/L (5-15) Blood Urea Nitrogen 9 mg/dL (7-18) Creatinine 0.8 MG/DL (0.55-1.30) Estimat Glomerular Filtration Rate > 60 mL/min (>60) Glucose Level 85 MG/DL (74-106) Calcium Level 9.2 MG/DL (8.5-10.1) Current Medications Medications (Trade) Dose Ordered Sig/Vida Route PRN Reason Start Time Stop Time Status Last Admin Dose Admin Acetaminophen (Tylenol) 650 mg Q4H PRN ORAL Mild Pain (Pain Scale 1-3) 02/11/18 21:45 03/13/18 21:44 Cephalexin (Keflex) 500 mg Q6HR ORAL 02/13/18 00:00 02/20/18 00:00 02/14/18 12:31 Dextrose (Dextrose 50%) 25 ml STAT PRN IV Hypoglycemia 02/11/18 21:45 03/13/18 21:44 Dextrose (Dextrose 50%) 50 ml STAT PRN IV Hypoglycemia 02/11/18 21:45 03/13/18 21:44 Diphenhydramine HCl (Benadryl) 25 mg Q6H PRN ORAL Itching/Pruritis 02/11/18 21:45 03/13/18 21:44 Divalproex Sodium (Depakote Sprinkles) 500 mg BID ORAL 02/12/18 09:15 03/14/18 09:14 02/14/18 09:06 Doxycycline Monohydrate (Vibramycin) 100 mg EVERY 12 HOURS ORAL 02/12/18 22:00 02/19/18 21:59 02/14/18 09:06 Enoxaparin Sodium (Lovenox) 40 mg BEDTIME SUBQ 02/11/18 22:45 03/13/18 22:44 02/13/18 21:15 Lorazepam (Ativan) 1 mg Q6H PRN ORAL For Anxiety 02/12/18 09:30 02/19/18 09:29 02/12/18 10:06 Lorazepam (Ativan) 2 mg Q6H PRN ORAL Agitation 02/12/18 11:30 02/19/18 11:29 Olanzapine (ZyPREXA) 10 mg DAILY ORAL 02/12/18 09:00 03/14/18 08:59 02/14/18 09:06 Ondansetron HCl (Zofran) 4 mg Q6H PRN IVP Nausea & Vomiting 02/11/18 21:45 03/13/18 21:44 Quetiapine Fumarate (SEROquel) 200 mg Q12HR ORAL 02/11/18 22:15 03/13/18 22:14 02/14/18 09:06 Vancomycin HCl (Vanco rx to dose) 1 ea DAILY PRN MISC Per rx protocol 02/12/18 14:30 03/14/18 14:29 Mary Suazo M.D. Feb 14, 2018 15:56
[2018-02-14 16:00] VITALS: BP 100/63
[2018-02-14] MEDS: LORazepam 1mg tab ORAL PRN (17:35)
--- NOTE | 2018-02-16 08:41 | Discharge Summary ---
Discharge Summary Discharge Summary _ DATE OF ADMISSION: 02/11/2018 DATE OF DISCHARGE: 02/14/2018 REASON FOR ADMISSION: 37 years old female with past medical history of schizophrenia, seizure disorder , COPD, was sent from [facility] for witnessed seizure episode. Patient appeared to be confused after seizure episode. Patient on Depakote for seizure disorder management. Patient was unable to provide significant history due to altered mental status. Vital signs revealed mild tachycardia , otherwise stable blood pressure, pulse oximetry stable on room air. Chest x-ray revealed no acute cardiopulmonary pathology. Laboratory work revealed no leukocytosis, stable hemoglobin and hematocrit. Stable renal parameters Potassium 3.2. Urinalysis with possible UTI. Urine toxicology screen was positive for amphetamine Depakote level subtherapeutic Patient admitted with diagnosis of status post seizure, post ictal, schizophrenia, hypokalemia ,possible UTI CONSULTANTS: ID specialist Dr. Suazo psychiatrist [facility] COURSE: Patient admitted and started on intarvenous hydration. Seizure precautions were maintained. Anticonvulsant regimen was resumed. No further seizure activity while in the hospital. Breakthrough seizure episode was possibly due to subtherapeutic Depakote level , possible noncompliance with medication regimen at home. Mental status back to normal. Patient was consult on compliance with anticonvulsant medication regimen. Psychiatry seen and evaluated the patient. Psychiatric medication regimen optimized as per psychiatrist. Potassium was replaced , potassium 3.6 prior to discharge. Renal parameters and electrolytes were closely monitored , and nephrotoxins were avoided Patient initially was on the IV hydration. Patient was counseled on abstinence from illicit street drugs. DVT prophylaxis provided. Patient initially was on the IV antibiotics for UTI . ID specialist closely followed. ID specialist recommended changing antibiotics to oral upon discharge to complete the course Mental status improved. Patient stabilized and was discharge to [facility]. FINAL DIAGNOSES: Seizure disorder with breakthrough episode ( possibly due to sub therapeutic level of anticonvulsant) Schizophrenia Dehydration Urinary tract infection Hypokalemia Drug abuse/amphetamine DISCHARGE MEDICATIONS: See Medication Reconciliation list. DISCHARGE INSTRUCTIONS: Patient was discharged to [facility]. Reinforced compliance with medication regimen. Patient was counseled on abstinence from street drugs I have been assigned to dictate discharge summary for this account. I was not involved in the patient's management. Pratima Cortes NP Feb 16, 2018 08:41
== END 2018-02-14 19:05 | disposition home or self-care (01) | DRG 101 ==
LOC: EDBD 17:22 → EMR 18:00 → 4E 20:22 → EDBEDREQ 21:41
DX: G40.909 Epilepsy, unspecified, not intractable, without status epilepticus (principal); N39.0 Urinary tract infection, site not specified; E86.0 Dehydration; F20.9 Schizophrenia, unspecified; E87.6 Hypokalemia; F15.10 Other stimulant abuse, uncomplicated; J44.9 Chronic obstructive pulmonary disease, unspecified
CPT/HCPCS: 36415; 71045; 80048; 80053; 80164; 80307; 81001; 81025; 85025; 87081; 87086; 93005; 99285